=== PATIENT | male | born 1950 | race Caucasian/White ===

== ENCOUNTER 2021-07-13 10:32 | Emergency (ER) | payer OTHER ==
[~2021-07-13] VITALS: Wt 111.1 kg
[2021-07-13] MEDS ORDERED: HYDROCODONE-AC1 EAC1 PO (15:06)
== END 2021-07-13 15:16 | disposition home or self-care (01) ==
LOC: ED 10:32
DX: S90.31XA Contusion of right foot, initial encounter (principal); S70.12XA Contusion of left thigh, initial encounter; S70.11XA Contusion of right thigh, initial encounter; S99.911A Unspecified injury of right ankle, initial encounter; W22.8XXA Striking against or struck by other objects, initial encounter; Y93.89 Activity, other specified; Y92.89 Other specified places as the place of occurrence of the external cause; Y99.8 Other external cause status